=== PATIENT | male | born 1955 | race Caucasian/White ===

== ENCOUNTER 2017-12-03 10:54 | Emergency (ER) | payer OTHER ==
[~2017-12-03] VITALS: Ht 175.2 cm; Wt 99.8 kg
== END 2017-12-03 13:28 | disposition home or self-care (01) ==
LOC: ED 10:54
DX: S66.811A Strain of other specified muscles, fascia and tendons at wrist and hand level, right hand, initial encounter (principal); W00.2XXA Other fall from one level to another due to ice and snow, initial encounter; Y93.89 Activity, other specified; Y92.89 Other specified places as the place of occurrence of the external cause; Y99.8 Other external cause status

== ENCOUNTER 2017-12-19 16:02 | Emergency (ER) | payer OTHER ==
[~2017-12-19] VITALS: Ht 177.8 cm; Wt 99.8 kg
[2017-12-19] MEDS ORDERED: DOXYCYCLINE100 M3 PO (16:42)
[2017-12-19] MEDS ORDERED: IBUPROFEN600 MG PO (16:42)
== END 2017-12-19 16:34 | disposition home or self-care (01) ==
LOC: ED 16:02
DX: L02.31 Cutaneous abscess of buttock (principal)

== ENCOUNTER 2019-10-28 15:05 | Emergency (ER) | payer BC ==
[~2019-10-28] VITALS: Ht 177.8 cm; Wt 99.8 kg
[~2019-10-28 15:05] MED LIST: DOXYCYCLINE100 M3 PO; IBUPROFEN600 MG PO
[2019-10-28] MEDS ORDERED: Motrin,Rufen800 MG PO (17:07)
[2019-10-28] MEDS ORDERED: AMOXICILLIN875 MG PO (17:07)
== END 2019-10-28 17:12 | disposition home or self-care (01) ==
LOC: ED 15:05
DX: K08.89 Other specified disorders of teeth and supporting structures (principal); I10 Essential (primary) hypertension

== ENCOUNTER 2022-11-16 14:31 | Emergency (ER) | payer MEDICARE ==
[~2022-11-16] VITALS: Ht 175.2 cm; Wt 102.1 kg
[~2022-11-16 14:31] MED LIST changes: +AMOXICILLIN875 MG PO; +Motrin,Rufen800 MG PO
[2022-11-16 15:07] LABS: BASO % 0.3 % (0.0-1.0); HEMATOCRIT 40.6 % (42.0-52.0); LYMPH # 1.9 10*3/uL (1.3-4.4); LYMPH % 28.7 % (27.0-41.0); MEAN CELL VOLUME 81.7 fl (80.0-94.0); MEAN PLATELET VOLUME 9.1 fl (9.6-12.3); MONO # 0.8 10*3/uL (0.1-1.0); MONO % 11.6 % (3.0-9.0); NEUT # 3.9 10*3/uL (2.3-7.9); NEUT % 59.2 % (47.0-73.0); PLATELET COUNT AUTOMATED 295 10*3/uL (130-400); RED BLOOD COUNT 4.97 10*6/uL (4.50-5.90); WHITE BLOOD COUNT 6.6 10*3/uL (4.8-10.8)
[2022-11-16 15:24] LABS: ALKALINE PHOSPHATASE 98 U/L (46-116); BUN 8 mg/dl (9-23); CHLORIDE 100 mmol/L (98-107); POTASSIUM 3.9 mmol/L (3.4-5.1); SGPT/ALT 14 U/L (10-49); TOTAL PROTEIN 7.4 gm/dL (6.0-8.0)
== END 2022-11-16 17:53 | disposition home or self-care (01) ==
LOC: ED 14:31
PROVIDERS: Internal Medicine
DX: R51.9 Headache, unspecified (principal); I10 Essential (primary) hypertension

== ENCOUNTER → 2025-03-25 | Outpatient (CLI) | payer OTHER | END | disposition home or self-care (01) | LOC: CARD 03-13 12:00 | PROVIDERS: ATTEND Physician Assistant | DX: I35.1 Nonrheumatic aortic (valve) insufficiency (principal); R01.1 Cardiac murmur, unspecified ==

== ENCOUNTER → 2025-05-01 | Outpatient (CLI) | payer OTHER ==
[2025-05-01 11:13] LABS: PLATELET COUNT AUTOMATED 294.0 10*3/uL (130-400)
[2025-05-01 12:04] LABS: BUN 13 mg/dl (9-23)
== END | disposition home or self-care (01) ==
LOC: LAB 10:24
PROVIDERS: ATTEND Internal Medicine Cardiovascular Disease
DX: Z01.812 Encounter for preprocedural laboratory examination (principal)

== ENCOUNTER → 2025-06-16 | Outpatient (CLI) | payer MEDICARE, MEDICAID ==
[2025-06-16 13:34] LABS: BASO # 0.0 10*3/uL (0.0-0.1); BASO % 0.5 % (0.0-1.0); EOS # 0.1 10*3/uL (0.0-0.4); EOS % 1.5 % (1.0-4.0); MEAN CELL VOLUME 83.7 fl (80.0-94.0); MEAN CORPUSCULAR HGB 26.0 pg (27.0-31.0); MEAN PLATELET VOLUME 8.9 fl (9.6-12.3); MONO # 0.4 10*3/uL (0.1-1.0); MONO % 7.9 % (3.0-9.0); NEUT # 2.5 10*3/uL (2.3-7.9); NEUT % 44.8 % (47.0-73.0); NUCLEATED RED BLOOD CELL 0.0 % (0.0-0.0); NUCLEATED RED BLOOD CELL 0.0 10*3/uL (0.0-0.0); PLATELET COUNT AUTOMATED 362 10*3/uL (130-400); RED CELL DISTRI WIDTH 15.5 % (0-14.5)
[2025-06-16 13:44] LABS: ACT PARTIAL THROMBO TIME 27.9 SECONDS (20.0-32.1)
[2025-06-16 13:55] LABS: BUN 10 mg/dl (9-23)
== END ==
LOC: LAB 13:07
PROVIDERS: ATTEND Internal Medicine Cardiovascular Disease
DX: I35.0 Nonrheumatic aortic (valve) stenosis (principal); I10 Essential (primary) hypertension; R97.20 Elevated prostate specific antigen [PSA]; Z79.899 Other long term (current) drug therapy

== ENCOUNTER 2025-07-03 17:08 | Inpatient (IN) | payer MEDICARE, MEDICAID ==
[~2025-07-03] VITALS: Ht 175.2 cm; Wt 104.3 kg
[2025-07-03 18:00] VITALS: BP 140/81
[2025-07-03] MEDS ORDERED: AMLODIPINE BESY10 MG PO (18:02)
[2025-07-03] MEDS ORDERED: SODIUM CHLORIDE 0.9% 1,000 ML IV ONE (18:20)
[2025-07-03] MEDS ORDERED: IOHEXOL 300 MG/ML 100 ML VIAL IV ONE (18:30)
[2025-07-03 18:42] LABS: MEAN CELL VOLUME 82.1 fl (80.0-94.0); MEAN CORPUSCULAR HGB 25.9 pg (27.0-31.0); MEAN PLATELET VOLUME 9.2 fl (9.6-12.3); NUCLEATED RED BLOOD CELL 0.0 % (0.0-0.0); NUCLEATED RED BLOOD CELL 0.0 10*3/uL (0.0-0.0); PLATELET COUNT AUTOMATED 310 10*3/uL (130-400); RED CELL DISTRI WIDTH 15.1 % (0-14.5)
[2025-07-03 18:43] LABS: MANUAL DIFF REFLEX YES
[2025-07-03 19:02] LABS: BUN 13 mg/dl (9-23)
[2025-07-03 19:05] LABS: PLATELET SUFFICIENCY NORMAL (NORMAL)
[2025-07-03] MEDS ORDERED: AMLODIPINE-BEN1 EAC3 PO (19:19)
[2025-07-03] MEDS ORDERED: Ondansetron Hydrochloride 4 MG/2 ML VIAL IV ONE (20:35)
[2025-07-03 22:30] VITALS: BP 138/86
[2025-07-04] MEDS ORDERED: Ondansetron Hydrochloride 4 MG/2 ML VIAL IV ONE (00:10)
[2025-07-04 00:28] LABS: BILIRUBIN Negative (Negative); BLOOD 3+ (Negative); CLARITY Clear (Clear); COLOR Dark Yellow (Yellow); KETONE Trace (Negative); LEUKO ESTERASE Negative (Negative); NITRITE Positive (Negative); PH 5.5 (4.5-8.0); SPECIFIC GRAVITY >= 1.030 (1.001-1.030); UROBILINOGEN 1.0 E.U./dl (0.0-1.0)
[2025-07-04 01:03] LABS: BACTERIA 2+
[2025-07-04 01:04] LABS: RBC 16-20 rbc/hpf (0-2); WBC 0-2 wbc/hpf (0-5)
[2025-07-04 01:39] VITALS: BP 136/81
[2025-07-04 04:32] VITALS: BP 144/90
[2025-07-04 07:58] VITALS: BP 136/88
[2025-07-04 20:01] VITALS: BP 139/87
[2025-07-04] MEDS ORDERED: ACETAMINOPHEN 650 MG SUPP R PRN (20:15)
[2025-07-04] MEDS ORDERED: SODIUM CHLORIDE 0.9% 1,000 ML IV SCH (20:25)
[2025-07-04 22:27] VITALS: BP 151/93
[2025-07-05] MEDS ORDERED: VANCOMYCIN/WATER FOR INJ (PEG) 300 ML IV SCH
[2025-07-05 05:52] VITALS: BP 148/96
[2025-07-05 06:41] LABS: MEAN CELL VOLUME 82.7 fl (80.0-94.0); MEAN CORPUSCULAR HGB 26.8 pg (27.0-31.0); MEAN PLATELET VOLUME 10.4 fl (9.6-12.3); NUCLEATED RED BLOOD CELL 0.0 % (0.0-0.0); NUCLEATED RED BLOOD CELL 0.0 10*3/uL (0.0-0.0); PLATELET COUNT AUTOMATED 345 10*3/uL (130-400); RED CELL DISTRI WIDTH 15.6 % (0-14.5)
[2025-07-05 06:45] LABS: MANUAL DIFF REFLEX YES
[2025-07-05 07:29] LABS: PLATELET SUFFICIENCY NORMAL (NORMAL)
[2025-07-05 07:30] LABS: VACUOLATION OF NEUTROPHILS SLIGHT
[2025-07-05 08:01] LABS: BUN 19 mg/dl (9-23); SGPT/ALT 17 U/L (5-49)
[2025-07-05 08:54] LABS: VITAMIN D, 25-HYDROXY 8.7 ng/mL (30-100)
== END 2025-07-05 07:29 | disposition short-term general hospital (02) | DRG 370 ==
LOC: ED 17:08 → EDHOLD 07-04 19:37
PROVIDERS: Nurse Practitioner Family; Student in an Organized Health Care Education/Training Program; ADMIT Student in an Organized Health Care Education/Training Program; ATTEND Student in an Organized Health Care Education/Training Program
DX: K22.3 Perforation of esophagus (principal); M54.2 Cervicalgia; D72.829 Elevated white blood cell count, unspecified; Z79.899 Other long term (current) drug therapy; Z79.2 Long term (current) use of antibiotics